=== PATIENT | female | born 1970 | race Caucasian/White ===

== ENCOUNTER → 2021-01-05 | Outpatient (CLI) | payer OTHER | LOC: RAD 06:46 | DX: S46.011A Strain of muscle(s) and tendon(s) of the rotator cuff of right shoulder, initial encounter (principal) ==

== ENCOUNTER → 2022-01-26 | Outpatient (CLI) | payer BC | LOC: RAD 13:53 | DX: K76.9 Liver disease, unspecified (principal) ==